=== PATIENT | male | born 1940 | race Caucasian/White ===

== ENCOUNTER 2020-09-14 09:26 | Outpatient (CLI) | payer OTHER | END 2020-09-14 09:27 | disposition home or self-care (01) | LOC: NUCLEAR 09:26 | PROVIDERS: ATTEND Internal Medicine Pulmonary Disease | DX: R09.02 Hypoxemia (principal); I10 Essential (primary) hypertension ==

== ENCOUNTER → 2024-10-18 08:18 | Outpatient (CLI) | payer OTHER ==
[2024-10-18 10:07] LABS: COL EPI 95 SECONDS (82-175)
== END | disposition home or self-care (01) ==
LOC: LAB 08:18
PROVIDERS: ATTEND Radiology Diagnostic Radiology
DX: J90 Pleural effusion, not elsewhere classified (principal); D69.6 Thrombocytopenia, unspecified

== ENCOUNTER 2024-10-20 08:44 | Outpatient (CLI) | payer OTHER ==
[~2024-10-20] VITALS: Ht 165.1 cm; Wt 68.0 kg
[2024-10-20 11:10] VITALS: BP 133/49; O2SAT 100
[2024-10-20 11:20] VITALS: BP 149/66
[2024-10-20 12:00] VITALS: BP 135/70
== END 2024-10-20 09:00 | disposition home or self-care (01) ==
LOC: SONOGRAMA 08:44
PROVIDERS: ATTEND Internal Medicine Pulmonary Disease
DX: J94.8 Other specified pleural conditions (principal); R91.8 Other nonspecific abnormal finding of lung field

== ENCOUNTER 2024-10-20 12:37 | Outpatient (CLI) | payer OTHER ==
[2024-10-20 13:32] LABS: MONONUCLEAR 96.3 %; PLEURAL FLUID WBC 0.4 10E3/uL; POLYMORPHONUCLEAR 3.7 %
[2024-10-20 13:37] LABS: PLEURAL FLUID APPEARANCE CRYSTAL CLEAR; PLEURAL FLUID COLOR YELLOW
[2024-10-20 14:01] LABS: TP PLEURAL FLUID 1.6 g/dl
== END 2024-10-20 13:07 | disposition home or self-care (01) ==
LOC: LAB 12:37
PROVIDERS: ATTEND Radiology Diagnostic Radiology
DX: R91.8 Other nonspecific abnormal finding of lung field (principal)